=== PATIENT | male | born 1995 ===

== ENCOUNTER 2017-09-04 22:26 | Emergency (ER) | payer MEDICAID, OTHER ==
[2017-09-04 22:40] VITALS: BP 126/75; PULSE 95; TEMP 98.2; O2SAT 98
--- NOTE | 2017-09-04 22:55 | C.PDOC ---
History Of Present Illness 21 year old male presents to ED with complaints of pain to his groin and right leg after soccer injury. Patient reports running and sliding falling into a split position and "overextended right leg". He complains of pain to groin and points to right inguinal area and thigh. He is able to walk but has pain with certain movements. Denies any pain or swelling to scrotum, difficulty urinating or other injury. Time Seen by Provider: 09/04/17 22:43 Chief Complaint (Nursing): Groin Pain History Per: Patient History/Exam Limitations: no limitations Onset/Duration Of Symptoms: Mins (55) Past Medical History Reviewed: Historical Data, Nursing Documentation, Vital Signs Vital Signs: Last Vital Signs Temp 98.2 F 09/04/17 22:37 Pulse 95 H 09/04/17 22:37 Resp 18 09/04/17 22:37 BP 126/75 09/04/17 22:37 Pulse Ox 98 09/04/17 23:03 - Medical History PMH: Asthma Surgical History: No Surg Hx Family History: States: Unknown Family Hx - Social History Hx Alcohol Use: No Hx Substance Use: Yes - Immunization History Hx Tetanus Toxoid Vaccination: No Hx Influenza Vaccination: Yes Hx Pneumococcal Vaccination: No Review Of Systems Gastrointestinal: Negative for: Abdominal Pain Genitourinary: Negative for: Dysuria, Hematuria, Penile Discharge, Scrotal Pain , Rash, Penile Pain Musculoskeletal: Positive for: Leg Pain. Negative for: Back Pain Skin: Negative for: Bruising Physical Exam - Physical Exam Appears: Non-toxic, No Acute Distress Skin: Warm, Dry Head: Atraumatic, Normacephalic Eye(s): bilateral: Normal Inspection Neck: Normal ROM Chest: Symmetrical Male Genital: Normal Inspection, No Testicular Tenderness, No Testicular Swelling, Inguinal Tenderness (right side), No Inguinal Swelling, No Scrotal Swelling, Circumcised Extremity: Normal ROM, No Calf Tenderness, No Deformity, No Swelling Extremity: Right: Normal ROM (pain with external rotation of hip), Other (right medial inner thigh. No swelling, erythema, mass, abrasion) Neurological/Psych: Oriented x3, Normal Speech Gait: Steady ED Course And Treatment O2 Sat by Pulse Oximetry: 98 Medical Decision Making Medical Decision Making: Patient with right inguinal and thigh pain after soccer injury. Area is tender to palpation, but normal ROM. No clinical suspicion for fracture. Patient has no pain or swelling to testicles and scrotum to suggest torsion. Motrin PO given for pain. Patient feels comfortable going home and will be discharge. Recommend rest, ice and analgesics. If pain persists he was instructed to return to the ED Disposition Counseled Patient/Family Regarding: Diagnosis, Need For Followup, Rx Given - Disposition Referrals: Non [facility] Provider, [Primary Care Provider] - Disposition: HOME/ ROUTINE Disposition Time: 23:01 Condition: GOOD Additional Instructions: Please apply ice to area 15 minutes three times a day. Take Motrin as needed for pain every 6 hours, with food to not upset stomach. Follow up with orthopedic if pain persists over one week. Prescriptions: Ibuprofen [Motrin] 600 mg PO Q8 #30 tab Instructions: Muscle Strain (DC) Forms: [facility] ([place]ri[place]) - POA Present On Arrival: None, Falls Or Trauma - Clinical Impression Clinical Impression: Muscle strain
[2017-09-05 01:11] VITALS: RESP 20
== END 2017-09-04 23:31 | disposition home or self-care (01) ==
LOC: C.ER 22:26 → SUPCPDRO 22:26 → C.ER 23:31
DX: S39.011A Strain of muscle, fascia and tendon of abdomen, initial encounter (principal); W18.30XA Fall on same level, unspecified, initial encounter; Y93.66 Activity, soccer